=== PATIENT | male | born 1955 | race Caucasian/White ===

== ENCOUNTER → 2016-10-28 | Outpatient (CLI) | payer BC ==
[2016-10-28 09:40] LABS: Basophils # (A) 0.1 k/uL (0-0.2); Basophils % (A) 1 %; CH 33.1; CHCM 35.1; Eosinophils # (A) 0.1 k/uL (0-0.7); Eosinophils % (A) 3 %; HCT 44.8 % (39.0-53.0); HGB 15.3 gm/dL (13.0-17.5); Luc # (Auto) 0.17; Luc % (Auto) 4; Lymphocytes # (A) 1.9 k/uL (1.0-4.8); Lymphocytes % (A) 40 %; MCH 32.3 pg (25.0-35.0); MCHC 34.2 g/dL (31.0-37.0); MCV 94.6 fL (80.0-100.0); Mean Platelet Volume 6.4; Monocytes # (A) 0.4 k/uL (0-1.0); Monocytes % (A) 8 %; Neutrophils # (A) 2.2 k/uL (1.3-7.7); Neutrophils % (A) 45 %; RBC 4.74 m/uL (4.30-5.90); RDW 12.7 % (11.5-15.5); WBC 4.8 k/uL (3.8-10.6)
[2016-10-28 11:21] LABS: ALT 29 U/L (21-72); AST 23 U/L (17-59); Alkaline Phosphatase 38 U/L (38-126); Anion Gap 12 mmol/L; Blood Urea Nitrogen 10 mg/dL (9-20); Calcium 9.5 mg/dL (8.4-10.2); Carbon Dioxide 25 mmol/L (22-30); Chloride 103 mmol/L (98-107); Cholesterol 198 mg/dL (<200); Glucose 99 mg/dL (74-99); HDL Cholesterol 47 mg/dL (40-60); Non-African American GFR(MDRD) >60 (>60 ml/min/1.73 sqM); Potassium 4.2 mmol/L (3.5-5.1); Sodium 140 mmol/L (137-145); Total Bilirubin 1.2 mg/dL (0.2-1.3); Total Protein 7.1 g/dL (6.3-8.2); Triglycerides 121 mg/dL (<150)
[2016-10-28 11:47] LABS: Prostate Specific Antigen 0.98 ng/mL (0.00-4.00)
== END | disposition home or self-care (01) ==
LOC: LABWHC1 09:00
PROVIDERS: ATTEND Nurse Practitioner Adult Health
DX: Z00.00 Encounter for general adult medical examination without abnormal findings (principal); I10 Essential (primary) hypertension; Z12.5 Encounter for screening for malignant neoplasm of prostate
CPT/HCPCS: 36415; 80053; 80061; 84153; 84439; 84443; 85025

== ENCOUNTER → 2017-10-06 | Outpatient (CLI) | payer BC ==
[2017-10-06 09:26] LABS: Appearance,Urine Clear (Clear); Bilirubin,Urine Negative (Negative); Blood,Urine Negative (Negative); Color,Urine Light Yellow; Glucose,Urine (UA) Negative (Negative); Ketones,Urine Negative (Negative); Leukocyte Esterase,Urine Negative (Negative); Protein,Urine Negative (Negative); Specific Gravity,Urine 1.004 (1.001-1.035); Urobilinogen,Urine <2.0 mg/dL (<2.0)
[2017-10-06 09:27] LABS: HCT 43.4 % (39.0-53.0); HGB 15.2 gm/dL (13.0-17.5); MCH 31.9 pg (25.0-35.0); MCV 91.1 fL (80.0-100.0); Platelet Count 219 k/uL (150-450); RBC 4.76 m/uL (4.30-5.90); RDW 12.9 % (11.5-15.5); WBC 5.7 k/uL (3.8-10.6)
[2017-10-06 09:56] LABS: Albumin 4.8 g/dL (3.5-5.0); Chloride 101 mmol/L (98-107); Sodium 139 mmol/L (137-145)
[2017-10-06 10:27] LABS: PSA Annual Screen 0.83 ng/mL (0.00-4.00)
[2017-10-06 10:49] LABS: ALT 27 U/L (21-72); AST 27 U/L (17-59); Alkaline Phosphatase 41 U/L (38-126); Anion Gap 13 mmol/L; Blood Urea Nitrogen 12 mg/dL (9-20); Calcium 9.9 mg/dL (8.4-10.2); Carbon Dioxide 25 mmol/L (22-30); Cholesterol 221 mg/dL (<200); Creatine Kinase 77 U/L (55-170); Glucose 93 mg/dL (74-99); HDL Cholesterol 44 mg/dL (40-60); LDL Cholesterol,Calculated 141 mg/dL (0-99); Total Protein 7.6 g/dL (6.3-8.2); Triglycerides 178 mg/dL (<150); Uric Acid 8.4 mg/dL (3.5-8.5)
[2017-10-06 17:33] LABS: Hepatitis A Ab, Total Reactive (Non-Reactive); Hepatitis B Surface AB- Quant 40.4 mIU/mL; Hepatitis C IgG Antibody Non-Reactive (Non-Reactive)
[2017-10-06 20:44] LABS: Hemoglobin A1C 5.3 % (4.0-6.0)
== END | disposition home or self-care (01) ==
LOC: LABWHC1 08:23
PROVIDERS: ATTEND Family Medicine
DX: I10 Essential (primary) hypertension (principal); Z12.5 Encounter for screening for malignant neoplasm of prostate; Z13.9 Encounter for screening, unspecified
CPT/HCPCS: 86803; 80061; 80053; 82550; 84443; 84550; 85027; 86706; 87340; 81003; 86708; 83036; 36415; G0103

== ENCOUNTER → 2017-12-01 | Outpatient (CLI) | payer BC ==
[2017-12-01 11:16] LABS: Anion Gap 12 mmol/L; Blood Urea Nitrogen 19 mg/dL (9-20); Calcium 10.1 mg/dL (8.4-10.2); Carbon Dioxide 28 mmol/L (22-30); Chloride 97 mmol/L (98-107); Glucose 94 mg/dL (74-99); Potassium 3.8 mmol/L (3.5-5.1); Sodium 137 mmol/L (137-145)
[2017-12-01 12:29] LABS: T4, Free (Free Thyroxine) 0.73 ng/dL (0.78-2.19)
== END | disposition home or self-care (01) ==
LOC: LABWHC1 10:21
PROVIDERS: ATTEND Family Medicine
DX: E03.9 Hypothyroidism, unspecified (principal); I10 Essential (primary) hypertension
CPT/HCPCS: 36415; 80048; 84439; 84443

== ENCOUNTER → 2018-03-23 | Outpatient (CLI) | payer BC ==
[2018-03-23 16:13] LABS: T4, Free (Free Thyroxine) 1.13 ng/dL (0.78-2.19)
== END | disposition home or self-care (01) ==
LOC: LABWHC1 14:22
PROVIDERS: ATTEND Family Medicine
DX: E03.9 Hypothyroidism, unspecified (principal)
CPT/HCPCS: 36415; 84439; 84443

== ENCOUNTER → 2018-04-05 | Outpatient (CLI) | payer BC ==
--- NOTE | 2018-04-05 13:07 | ECHOS ---
STRESS ECHOCARDIOGRAM INDICATIONS: Chest pain. MEDICATIONS: Metoprolol, Lipitor, Benicar. BASELINE HEART RATE: 75 BASELINE BLOOD PRESSURE: 117/50 MAXIMUM HEART RATE: 155 MAXIMUM BLOOD PRESSURE: 195/81 85% MPHR: 134 100% MPHR: 158 METS: 10.5 MAXIMUM STAGE REACHED: III TOTAL EXERCISE TIME: 9:01 CLINICAL INFORMATION: Baseline rhythm sinus mechanism, rate 75, normal axis, intervals, normal electrocardiogram, baseline blood pressure 117/50 mmHg. Patient exercised on Ivan status post protocol for 9 minutes 1 second reaching peak rate 155 beats per minute which is equal to 98% maximum predicted heart rate. Peak blood pressure 195/81 mmHg. Test was terminated due to fatigue. There was no chest pain. Electrocardiograph monitoring revealed no evidence of diagnostic ischemic ST deviation. FINDINGS: Baseline echocardiogram revealed normal function at peak exercise. There was normal wall motion augmentation with no hypokinesis or dyskinesis. CONCLUSION: 1. Good exercise tolerance with normal electrocardiograph response to exercise. 2. Normal stress echocardiogram with no evidence of stress-induced ischemia. MMODL / IJN: [id number] /
== END | disposition home or self-care (01) ==
LOC: RADNMMAIN 08:57
PROVIDERS: ATTEND Family Medicine
DX: R07.9 Chest pain, unspecified (principal)
CPT/HCPCS: 93351

== ENCOUNTER → 2018-07-03 | Outpatient (CLI) | payer BC | END | disposition home or self-care (01) | LOC: LABWHC1 13:54 | PROVIDERS: ATTEND Family Medicine | DX: E03.9 Hypothyroidism, unspecified (principal) | CPT/HCPCS: 36415; 84443 ==

== ENCOUNTER → 2018-10-10 | Outpatient (CLI) | payer BC ==
[2018-10-10 11:11] LABS: Appearance,Urine Clear (Clear); Bilirubin,Urine Negative (Negative); Blood,Urine Negative (Negative); Color,Urine Light Yellow; Glucose,Urine (UA) Negative (Negative); Ketones,Urine Negative (Negative); Leukocyte Esterase,Urine Negative (Negative); Nitrite,Urine Negative (Negative); Protein,Urine Negative (Negative); Specific Gravity,Urine 1.003 (1.001-1.035); Urobilinogen,Urine <2.0 mg/dL (<2.0)
[2018-10-10 11:25] LABS: Basophils # (A) 0.1 k/uL (0-0.2); Basophils % (A) 1 %; Eosinophils # (A) 0.2 k/uL (0-0.7); Eosinophils % (A) 3 %; HGB 13.5 gm/dL (13.0-17.5); Lymphocytes # (A) 1.7 k/uL (1.0-4.8); Lymphocytes % (A) 27 %; MCH 32.5 pg (25.0-35.0); MCHC 33.7 g/dL (31.0-37.0); MCV 96.6 fL (80.0-100.0); Mean Platelet Volume 6.2; Monocytes # (A) 0.6 k/uL (0-1.0); Monocytes % (A) 9 %; Neutrophils # (A) 3.6 k/uL (1.3-7.7); Neutrophils % (A) 58 %; Platelet Count 272 k/uL (150-450); RBC 4.14 m/uL (4.30-5.90); RDW 12.9 % (11.5-15.5); WBC 6.3 k/uL (3.8-10.6)
[2018-10-10 17:51] LABS: Albumin 4.6 g/dL (3.80-4.90); Albumin/Globulin Ratio 2.42 (1.60-3.17); Anion Gap 8.1 mmol/L (4.00-12.00); Calcium 9.6 mg/dL (8.7-10.3); Carbon Dioxide 28.9 mmol/L (21.6-31.8); Globulin 1.9 g/dL (1.6-3.3); LDL Cholesterol,Calculated 51.4 mg/dL (0.0-131.0); Potassium 3.8 mmol/L (3.5-5.5); Total Bilirubin 1.2 mg/dL (0.2-1.2); Total Protein 6.5 g/dL (6.2-8.2); VLDL Calculation 23.6 mg/dL (5.00-40.00)
[2018-10-10 19:29] LABS: Hemoglobin A1C 5.2 % (4.0-6.0)
== END | disposition home or self-care (01) ==
LOC: LABWHC1 10:48
PROVIDERS: ATTEND Family Medicine
DX: I10 Essential (primary) hypertension (principal); E78.5 Hyperlipidemia, unspecified; E03.9 Hypothyroidism, unspecified; Z79.899 Other long term (current) drug therapy
CPT/HCPCS: 36415; 80053; 80061; 81003; 82550; 83036; 84443; 85025

== ENCOUNTER 2018-12-10 06:52 | Day surgery (SDC) | payer BC ==
[2018-12-07 08:23] VITALS: BMI 28.7
[~2018-12-10 06:52] MED LIST: LACTATED RINGERS 1,000 ML IV SCH; LIDOCAINE 1% 20 ML VIAL (10MG/ML) FOR IV START INTRADERMA PRN
[2018-12-10] MEDS ORDERED: LACTATED RINGERS 1,000 ML IV ONE (07:07)
[2018-12-10 07:16] VITALS: TEMP 98.3
[2018-12-10] MEDS ORDERED: LIDOCAINE 1% INJ 10MG/ML (20 ML MDV) ONE (07:55)
[2018-12-10] MEDS ORDERED: PROPOFOL 10 MG/ML 20 ML VIAL IV ONE (07:55)
--- NOTE | 2018-12-10 08:23 | P.PCN ---
Date of Procedure: 12/10/18 Procedure(s) Performed: Procedure: Total colonoscopy. Preoperative diagnosis: Screening for neoplasia. Postoperative diagnosis: Diverticulosis with no evidence of acute diverticulitis, strictures, polyps or cancer. Preparation: HalfLytely prep. Sedation: Was provided by anesthesia. Brief clinical history: The patient is a 63-year-old male who is scheduled for this evaluation for screening for neoplasia age being his risk factor. His prior exam was in 2008. The patient has no abdominal complaints, bleeding or anemia. Procedure: With the patient on his left lateral decubitus position and after informed consent and adequate sedation, the perianal area was inspected and it did not show any fissures or fistulas. There were no masses felt on digital rectal examination. The Olympus CFH 190L video colonoscope was then inserted in the rectum in the usual fashion and advanced to the cecum. There were multiple diverticular orifices seen scattered along the length of the bowel wall, more so on the left side, with no evidence of acute diverticulitis or strictures. No polyps or tumors were seen. I retroflexed the endoscope in the rectum before the endoscope was withdrawn. The patient tolerated the procedure well. Plan: The patient was reassured. Discussed dietary measures. He will follow up with you as planned and I recommended repeat exam in 10 years.
[2018-12-10 08:57] VITALS: BP 144/82; PULSE 69; RESP 16
== END 2018-12-10 08:55 | disposition home or self-care (01) ==
LOC: ORWHC2ENDO 06:52
DX: Z12.11 Encounter for screening for malignant neoplasm of colon (principal); K57.30 Diverticulosis of large intestine without perforation or abscess without bleeding; Z88.8 Allergy status to other drugs, medicaments and biological substances; I10 Essential (primary) hypertension; E78.5 Hyperlipidemia, unspecified; Z87.891 Personal history of nicotine dependence; E07.9 Disorder of thyroid, unspecified; Z79.890 Hormone replacement therapy; Z79.899 Other long term (current) drug therapy
CPT/HCPCS: J2001; J2704; G0121; 45378

== ENCOUNTER → 2021-04-28 | Outpatient (CLI) | payer MEDICARE ==
--- NOTE | 2021-04-28 09:42 | CTL ---
EXAMINATION TYPE: CT Low Dose Lung DATE OF EXAM ORDERED: 04/28/2021 HISTORY: Long-term tobacco use. Lung cancer screening CT DLP: [address] CTDI: 2.22 mGy Automated exposure control for dose reduction was used. SCREENING VISIT: Baseline COMPARISON: None TECHNIQUE: Low dose computed tomography scan was performed through the chest at 1 mm thick sections a nd reconstructed images in all 3 planes at [address] DIAGNOSTIC QUALITY: Limited, but interpretable FINDINGS: LUNG NODULES: None. LUNGS: COPD: Severity: Mild Fibrosis: Severity: None Lymph nodes: No greater than 1 cm Other findings: None RIGHT PLEURAL SPACE: Effusion: None Calcification: None Thickening: None Pneumothorax: None LEFT PLEURAL SPACE: Effusion: None Calcification: None Thickening: None Pneumothorax: None HEART: Heart Size: Normal Coronary calcification: Moderate to severe three-vessel Pericardial effusion: None OTHER FINDINGS: Upper abdomen: None Bony thorax: None Supraclavicular region: None Other: None IMPRESSION: No suspicious nodules. CT LUNG RAD AND CT CHEST RECOMMENDATION: Lung-Rad 1 Negative: Continue annual screening with LDCT in 12 months. S Modifier (other clinically significant findings): S Fairly severe three-vessel coronary calcification should be correlated with additional cardiac risk f actors.
--- NOTE | 2021-04-28 12:07 | FL ---
EXAMINATION: Upper GI examination DATE: 04/28/2021 CLINICAL INDICATION: 66-year-old male R13.10, dysphagia, intermittent mid chest pain and food stickin g. COMPARISON: None Total Fluoroscopy Time: 1 minute 56 seconds 50 images obtained. FINDINGS: The esophagus has a normal course, caliber, motility and mucosa. There is a small hiatal hernia noted. Valsalva and positional maneuvers could not elicit any gastroesophageal reflux. The stomach shows mild diffuse fold thickening. Otherwise, no discrete filling defect. The duodenum s hows a normal mucosal pattern. IMPRESSION: 1. Small hiatal hernia. Gastroesophageal reflux could not be elicited during the course of the exam. 2. Mild diffuse gastric fold thickening can be seen with gastritis. Clinically correlate. 3. No esophageal stricture, mass, or other specific abnormality seen.
--- NOTE | 2021-04-28 13:31 | US ---
EXAMINATION TYPE: US duplex aorta DATE OF EXAM: 04/28/2021 COMPARISON: NONE CLINICAL HISTORY: 66-year-old male Z13.6 AAA SCREENING. TECHNIQUE: Multiple sonographic images of the abdominal aorta are obtained. FINDINGS: EXAM MEASUREMENTS: Abdominal Aorta: Proximal: 2.5 x 2.5cm Mid: 2.1 x 2.0cm Distal: 1.8 x 1.9cm Right Iliac: 0.8 x 1.1cm Left Iliac: 1.0 x 1.4cm Network Control Supervisor notes: Proximal portion measures in upper limits of normal IMPRESSION: 1. Borderline ectasia proximal abdominal aorta up to 2.5 cm. 2. No evidence for AAA.
== END | disposition home or self-care (01) ==
LOC: RADCTMAIN 08:17
PROVIDERS: ATTEND Family Medicine
DX: Z12.2 Encounter for screening for malignant neoplasm of respiratory organs (principal); Z13.6 Encounter for screening for cardiovascular disorders; I77.810 Thoracic aortic ectasia; R13.10 Dysphagia, unspecified; K44.9 Diaphragmatic hernia without obstruction or gangrene; K21.9 Gastro-esophageal reflux disease without esophagitis; K63.89 Other specified diseases of intestine; F17.210 Nicotine dependence, cigarettes, uncomplicated
CPT/HCPCS: 71271; 74246; 93979

== ENCOUNTER → 2021-09-06 | Outpatient (CLI) | payer MEDICARE ==
[2021-09-06 14:54] LABS: ALT 32 U/L (10-49); AST 34 U/L (14-35); African American GFR (CKD) 105.5 (60.0-200.0); Albumin/Globulin Ratio 2.04 (1.60-3.17); Alkaline Phosphatase 46 U/L (41-126); BUN/Creat Ratio 8.92 Ratio (12.00-20.00); Blood Urea Nitrogen 7.7 mg/dL (9.0-27.0); Calcium 9.8 mg/dL (8.7-10.3); Chloride 97 mmol/L (96-109); Chol/HDL Ratio 1.79 Ratio; Globulin 2.5 g/dL (1.6-3.3); Glucose 92 mg/dL (70-110); LDL Cholesterol,Calculated 48.1 mg/dL (0.0-131.0); Potassium 3.8 mmol/L (3.5-5.5); Sodium 135 mmol/L (135-145); Total Protein 7.5 g/dL (6.2-8.2); VLDL Calculation 11.92 mg/dL (5.00-40.00)
== END | disposition home or self-care (01) ==
LOC: LABWHC1 10:29
PROVIDERS: ATTEND Internal Medicine Interventional Cardiology
DX: E78.2 Mixed hyperlipidemia (principal)
CPT/HCPCS: 36415; 80053; 80061

== ENCOUNTER → 2021-10-07 | Outpatient (CLI) | payer MEDICARE ==
--- NOTE | 2021-10-07 15:19 | XR ---
EXAMINATION TYPE: XR chest 2V DATE OF EXAM: 10/07/2021 COMPARISON: None available HISTORY: Positive Covid 19 TECHNIQUE: Frontal and lateral views of the chest are obtained. FINDINGS: 11 mm elongated density superimposed on the superior aspect of the left hilum likely representing a s ummation of vascular shadows. Clear remainder of the lungs. No sizable pleural effusion or definite pneumothorax. No cardiomegaly. Minimal aortic atherosclerotic calcifications. No gross aggressive bone lesion. IMPRESSION: No acute pulmonary abnormality.
== END | disposition home or self-care (01) ==
LOC: RADXRMAIN 14:43
PROVIDERS: ATTEND Nurse Practitioner Family
DX: U07.1 COVID-19 (principal)
CPT/HCPCS: 71046

== ENCOUNTER → 2022-02-21 | Outpatient (CLI) | payer MEDICARE ==
[2022-02-21 14:22] LABS: Basophils % (A) 1.4 %; Eosinophils # (A) 0.15 X 10*3/uL (0.04-0.35); Eosinophils % (A) 2.1 %; HCT 42.6 % (39.6-50.0); HGB 14.3 g/dL (13.0-17.0); Immature Grans, Automated 0.4 %; Lymphocytes # (A) 1.81 X 10*3/uL (0.90-5.00); Lymphocytes % (A) 25.6 %; MCH 31.8 pg (27.0-32.0); MCHC 33.6 g/dL (32.0-37.0); MCV 94.9 fL (80.0-97.0); Mean Platelet Volume 9.3 fL (9.5-12.2); Monocytes # (A) 0.97 X 10*3/uL (0.20-1.00); Monocytes % (A) 13.7 %; NRBC Per 100 WBC 0 /100 WBCS (0.0-0.0); Neutrophils % (A) 56.8 %; Platelet Count 264 X 10*3/uL (140-440); RBC 4.49 X 10*6/uL (4.40-5.60); RDW 12.9 % (11.5-14.5); WBC 7.06 X 10*3/uL (4.50-10.00)
[2022-02-21 14:36] LABS: ALT 25 U/L (10-49); AST 44 U/L (14-35); African American GFR (CKD) 107.7 (60.0-200.0); Albumin 5.1 g/dL (3.8-4.9); Albumin/Globulin Ratio 2.12 (1.60-3.17); Alkaline Phosphatase 51 U/L (41-126); BUN/Creat Ratio 10.51 Ratio (12.00-20.00); Blood Urea Nitrogen 8.4 mg/dL (9.0-27.0); Calcium 10.1 mg/dL (8.7-10.3); Carbon Dioxide 25.6 mmol/L (20.0-27.5); Chloride 91 mmol/L (96-109); Chol/HDL Ratio 1.91 Ratio; Globulin 2.4 g/dL (1.6-3.3); Glucose 83 mg/dL (70-110); LDL Cholesterol,Calculated 58.9 mg/dL (0.0-131.0); Non-African American GFR(CKD) 92.9 (60.0-200.0); Potassium 4.2 mmol/L (3.5-5.5); Sodium 131 mmol/L (135-145); Total Protein 7.5 g/dL (6.2-8.2); VLDL Calculation 10.46 mg/dL (5.00-40.00)
[2022-02-21 16:46] LABS: Magnesium 1.9 mg/dL (1.5-2.4)
== END | disposition home or self-care (01) ==
LOC: LABWHC1 08:39
PROVIDERS: ATTEND Internal Medicine Geriatric Medicine
DX: I25.10 Atherosclerotic heart disease of native coronary artery without angina pectoris (principal); R73.9 Hyperglycemia, unspecified; N40.0 Benign prostatic hyperplasia without lower urinary tract symptoms; E03.9 Hypothyroidism, unspecified
CPT/HCPCS: 36415; 80053; 80061; 83735; 84153; 84439; 84443; 85025

== ENCOUNTER → 2022-05-17 | Outpatient (CLI) | payer MEDICARE ==
--- NOTE | 2022-05-17 19:09 | XR ---
EXAMINATION TYPE: XR thoracic spine complete DATE OF EXAM: 05/17/2022 Comparison: 3 views Clinical History: 67-year-old male M54.9 DORSALGIA, UNSPECIFIED Findings: Osteopenia. 12 rib-bearing thoracic vertebral bodies. All pedicles are visualized. Mild degenerative endplate spondylosis lower thoracic thoracic spine. Vertebral body heights are preserved and alignmen t is maintained. Some limitation in visualization of the uppermost thoracic vertebral bodies due to o verlying shoulders. Impression: Mild degenerative disc disease lower thoracic spine. No vertebral compression collapse or malalignmen t.
== END | disposition home or self-care (01) ==
LOC: RADXRMAIN 16:01
PROVIDERS: ATTEND Internal Medicine Geriatric Medicine
DX: M51.34 Other intervertebral disc degeneration, thoracic region (principal)
CPT/HCPCS: 72072

== ENCOUNTER → 2022-05-25 | Outpatient (CLI) | payer MEDICARE ==
--- NOTE | 2022-05-25 09:26 | US ---
EXAMINATION TYPE: US abdomen complete DATE OF EXAM: 05/25/2022 COMPARISON: NONE CLINICAL HISTORY: N20.0 Kidneystone. Back pain x couple weeks TECHNIQUE: Multiple sonographic images of the abdomen are obtained. FINDINGS: EXAM MEASUREMENTS: Liver Length: 16.1 cm Gallbladder Wall: 0.2 cm CBD: 0.5 cm Spleen: 10.5 cm Right Kidney: 9.9 x 5.2 x 4.7 cm Left Kidney: 11.1 x 5.7 x 6.5 cm Pancreas: obscured by overlying midline bowel gas Liver: wnl Gallbladder: wnl Evidence for sonographic Thayer's sign: no CBD: wnl Spleen: wnl Right Kidney: wnl Left Kidney: wnl Upper IVC: wnl Abd Aorta: proximal portion obscured, mid and distal portions wnl The liver is homogenous. The intrahepatic portion of the IVC and proximal abdominal aorta are within normal limits. There is no evidence of cholelithiasis. Common bile duct is unremarkable. The visu alized portions of the pancreas are homogenous. The spleen is unremarkable. Kidneys are symmetric a nd free of hydronephrosis. No shadowing renal calculi. No renal lesions are seen. IMPRESSION: No acute abdominal process.
== END | disposition home or self-care (01) ==
LOC: RADUSWWP 07:32
PROVIDERS: ATTEND Internal Medicine Geriatric Medicine
DX: N20.0 Calculus of kidney (principal)
CPT/HCPCS: 76700

== ENCOUNTER 2022-07-14 08:55 | Emergency (ER) | payer MEDICARE ==
[2022-07-14 09:09] VITALS: RESP 18; TEMP 98.7
[2022-07-14] MEDS ORDERED: hydrALAZINE HCL 20 MG/ML 1 ML VIAL IVP STA ×2 (09:33→13:43)
--- NOTE | 2022-07-14 09:43 | ED ---
General Adult HPI - General Source: patient, RN notes reviewed, old records reviewed Mode of arrival: ambulatory Limitations: no limitations <Sohan Davis - Last Filed: 07/14/22 15:45> <Missael Guerrero - Last Filed: 07/14/22 16:46> - General Chief complaint: Recheck/Abnormal Lab/Rx Stated complaint: hypertension, nausea Time Seen by Provider: 07/14/22 09:13 - History of Present Illness Initial comments: Patient is a 67-year-old male with past medical history remarkable for hypertension, thyroid disorder, hyperlipidemia who presents emergency Department complaining of hypertension. States he first noticed that he was having hypertension issues since Monday. Has been taking his normal prescribed metopro lol 50 mg at night and hydrochlorothiazide 25 mg in the morning. States he has not missed any doses. States that since Monday he has been having mild generalized headaches as well as sinus pressure. He states he typically notices that his blood pressure is elevated when that is the case in the 180 systolic. Denies any other symptoms including blurry vision, weakness, numbness, chest pain, shortness of breath, abdominal pain, nausea, vomiting. States he did have an episode of lightheadedness and low blood pressure on Monday. States he bent forward and then had a light headedness near syncopal episode at that time. Was evaluated by EMS and found to have a blood pressure with systolics in the low 100s. He declined transfer the hospital at that time. Has otherwise felt well. Presents for his hypertension at this time. He states he is very very slight nausea occasionally but currently denies it. (Sohan Davis) - Related Data Home Medications Medication Instructions Recorded Confirmed Atorvastatin [Lipitor] 10 mg PO HS 12/07/18 07/14/22 Levothyroxine Sodium [Synthroid] 50 mcg PO DAILY 12/07/18 07/14/22 Metoprolol Succinate (ER) [Toprol 50 mg PO HS 12/07/18 07/14/22 Xl] Budesonide/Formoterol Fumarate 2 puff INHALATION RT-BID 07/14/22 07/14/22 [Symbicort 160-4.5 Mcg Inhaler] Latanoprost/Pf [Latanoprost 0.005% 1 drop BOTH EYES DAILY 07/14/22 07/14/22 Eye Drop] Olmesartan Medoxomil [Benicar] 40 mg PO DAILY 07/14/22 07/14/22 hydroCHLOROthiazide 25 mg PO DAILY 07/14/22 07/14/22 Allergies Allergy/AdvReac Type Severity Reaction Status Date / Time nebivolol [From [facility]] Allergy Rash/Hives Verified 07/14/22 11:56 Review of Systems ROS Other: All systems not noted in ROS Statement are negative. <Sohan Davis - Last Filed: 07/14/22 15:45> ROS Other: All systems not noted in ROS Statement are negative. <Missael Guerrero - Last Filed: 07/14/22 16:46> ROS Statement: Those systems with pertinent positive or pertinent negative responses have been documented in the HPI. Review of Systems: CONST: Denies fever EYES: Denies blurry vision ENT: Denies nasal congestion C/V: Denies Chest pain RESP: Denies shortness of breath GI: Denies abdominal pain : Denies dysuria SKIN: Denies rash. MSK: Denies joint pain. NEURO: Endorses headache (Sohan Davis) Past Medical History Past Medical History: Hyperlipidemia, Hypertension, Thyroid Disorder History of Any Multi-Drug Resistant Organisms: None Reported Past Surgical History: Orthopedic Surgery Additional Past Surgical History / Comment(s): colonoscopy, elbow surg. Past Anesthesia/Blood Transfusion Reactions: No Reported Reaction Smoking Status: Never smoker Past Alcohol Use History: Occasional Past Drug Use History: None Reported <Sohan Davis - Last Filed: 07/14/22 15:45> General Exam Limitations: no limitations <Sohan Davis - Last Filed: 07/14/22 15:45> - General Exam Comments Initial Comments: General: Appears in no acute distress. HEAD: Normal with no signs of head trauma. EYES: PERRLA, EOMI, conjunctiva normal, no discharge. Pupils are 3 mm and equal bilaterally. ENT: Hearing grossly intact, normal oropharynx. RESPIRATORY: Clear breath sounds bilaterally. No wheezes, rales, or rhonchi. C/V: Regular rate and rhythm. S1 and S2 auscultated, peripheral pulses 2+ and intact throughout ABD: Abd is soft, nontender, nondistended EXT: Normal range of motion, no obvious deformity SKIN: No rashes or lesions observed on exposed skin. NEURO: Alert and oriented x 4. Cranial nerves II-XII intact. No focal sensory or strength deficits. GCS of 15. NIH is 0. He will to ambulate without difficulty. (Sohan Davis) Course <Missael Guerrero - Last Filed: 07/14/22 16:46> Vital Signs 07/14/22 07/14/22 07/14/22 09:03 10:09 11:18 Temperature 98.7 F Pulse Rate 82 79 94 Respiratory 18 18 18 Rate Blood Pressure 208/114 181/100 166/99 O2 Sat by Pulse 96 96 99 Oximetry 07/14/22 07/14/22 14:32 15:52 Temperature Pulse Rate 92 96 Respiratory 18 18 Rate Blood Pressure 168/104 131/84 O2 Sat by Pulse 97 96 Oximetry - Reevaluation(s) Reevaluation #1: 07/14/22 16:45 Chief this patient has a sign out, pending the bed availability at [place]. I did receive a call from the stroke team indicating that there was no bed available, and that the patient would need to be transferred ER to ER. Case discussed with Dr. Boubacar alvarado who will accept transfer to the emergency department. (Missael Guerrero) Medical Decision Making - Lab Data Result diagrams: 07/14/22 10:02 07/14/22 10:02 - EKG Data -: EKG Interpreted by Me <Sohan Davis - Last Filed: 07/14/22 15:45> - Lab Data Result diagrams: 07/14/22 10:02 07/14/22 10:02 <Missael Guerrero - Last Filed: 07/14/22 16:46> - Medical Decision Making Based on the patient's presentation and physical exam, I'm concerned for symptomatic hypertension at this time. He is resting comfortably. The pressure is in the 200s systolic. Is also having a mild headache. This is been ongoing for days. States in appears that the blood pressure is causing the headache as he knows that his elevated prior to having the headache. Also has very mild nausea intermittently which he currently does not have. States he has been compliant with medications. No other acute complaints at this time. Differential includes but is not limited to symptomatic hypertension, intra cranial issue, but tried abnormality. We will obtain basic laboratory studies, screening EKG, CT brain. He'll be given IV hydralazine for his blood pressure. He was in agreement this plan. Vital signs within acceptable limits except for the hypertension. EKG showed no evidence of acute ischemia. Laboratory studies are remarkable for a mild hyponatremia of 127 and hypochloremia of 90. Remainder the blood work was unremarkable. Patient's chest x-ray as interpreted by myself reveals no evidence of acute cardio Poni process. No infiltrate. Patient's CT brain as interpreted by myself reveals no acute intracranial hemorrhage, mass, midline shift. Radiology did read that there was a prominence of the basilar tip of the basilar artery concerning for aneurysm and they recommend a CT angiogram. CT angiogram was therefore obtained and interpreted by myself as showing mild stenosis of bilateral inner internal carotid secondary to Plavix, as well as a small aneurysm at the tip of the basilar artery. Radiology measure the aneurysm is 1.1 cm. They states that there is a left internal carotid artery reduction of 70%, as well as a right internal carotid artery reduction of 60% secondary to [place]. At this time, I did reevaluate the patient. Patient's blood pressure is somewhat improved on 166/99. He states his headache is resolved as well. Is feeling improved overall. I did state that due to his CT findings that would like to contact the neuro interventional is on-call. He was in agreement with this plan. I did speak with Dr. Lott, and there was a delay in receiving a callback. He agreed to evaluate the patient's imaging. After he evaluated the imaging, he did speak with me again and would like the patient transferred to [facility] where he is located. He would like the patient is on a Cardene drip managed blood pressures, goal systolics less than 140. He may do an evaluatory angiogram further evaluate the aneurysm. I spoke to patient and he was in agreement this plan. I spoke with the neuro crit team, who are arranging an ICU bed for the patient. Patient will be transferred when we are contacted by [facility]. Accepting physician is the patient's neuro contractor general engineering, Dr. lott. Transfer is pending at availability. I did reevaluate the patient and patient's blood pressure is further improved at this time with systolics in the 130s. He was still in agreement with transfer. (Sohan Davis) - Lab Data Lab Results 07/14/22 07/14/22 07/14/22 Range/Units 10:02 10:02 10:02 WBC 8.8 (3.8-10.6) k/uL RBC 4.74 (4.30-5.90) m/uL Hgb 15.4 (13.0-17.5) gm/dL Hct 42.1 (39.0-53.0) % MCV 88.8 (80.0-100.0) fL MCH 32.5 (25.0-35.0) pg MCHC 36.6 (31.0-37.0) g/dL RDW 12.7 (11.5-15.5) % Plt Count 257 (150-450) k/uL MPV 7.4 Neutrophils % 78 % Lymphocytes % 12 % Monocytes % 6 % Eosinophils % 1 % Basophils % 1 % Neutrophils # 6.9 (1.3-7.7) k/uL Lymphocytes # 1.1 (1.0-4.8) k/uL Monocytes # 0.6 (0-1.0) k/uL Eosinophils # 0.1 (0-0.7) k/uL Basophils # 0.1 (0-0.2) k/uL PT 10.6 (9.0-12.0) sec INR 1.0 (<1.2) APTT 27.9 (22.0-30.0) sec Sodium 127 L (137-145) mmol/L Potassium 3.9 (3.5-5.1) mmol/L Chloride 90 L (98-107) mmol/L Carbon Dioxide 27 (22-30) mmol/L Anion Gap 10 mmol/L BUN 8 L (9-20) mg/dL Creatinine 0.67 (0.66-1.25) mg/dL Est GFR (CKD-EPI)AfAm >90 (>60 ml/min/1.73 sqM) Est GFR (CKD-EPI)NonAf >90 (>60 ml/min/1.73 sqM) Glucose 100 H (74-99) mg/dL Calcium 9.4 (8.4-10.2) mg/dL Magnesium 1.7 (1.6-2.3) mg/dL Total Bilirubin 2.2 H (0.2-1.3) mg/dL AST 43 (17-59) U/L ALT 27 (4-49) U/L Alkaline Phosphatase 52 (38-126) U/L Total Protein 7.7 (6.3-8.2) g/dL Albumin 5.0 (3.5-5.0) g/dL - EKG Data EKG Comments: 12-lead Electrocardiogram Interpretation Note EKG was reviewed and interpreted by myself. 12-lead ECG performed at 1002 is interpreted by me as revealing normal sinus rhythm at a rate of 66 beats per minute. [place] is normal. MO interval is 202 ms, QRS durations 85 ms, QTc is 383 ms.. There were no ST or T wave abnormalities to suggest myocardial ischemia or injury. R wave progression across the precordium was satisfactory. By my interpretation this EKG is non-diagnostic for acute ischemia. No prior EKG for comparison. (Sohan Davis) Disposition Time of Disposition: 14:00 - Out of Hospital Transfer - Req. Specs Out of Hospital Transfer - Requested Specifics: Other Emergency Center (Transfer to [facility] for eval by neurocrit care.) <Sohan Davis - Last Filed: 07/14/22 15:45> <Missael Guerrero - Last Filed: 07/14/22 16:46> Clinical Impression: Basilar artery aneurysm, Uncontrolled hypertension Disposition: OTHER INSTITUTION NOT DEFINED Condition: Stable Referrals: Amauri De La Paz MD [Primary Care Provider] - 1-2 days
[2022-07-14 10:21] LABS: Basophils # (A) 0.1 k/uL (0-0.2); Basophils % (A) 1 %; Eosinophils # (A) 0.1 k/uL (0-0.7); Eosinophils % (A) 1 %; HCT 42.1 % (39.0-53.0); HGB 15.4 gm/dL (13.0-17.5); Lymphocytes # (A) 1.1 k/uL (1.0-4.8); Lymphocytes % (A) 12 %; MCH 32.5 pg (25.0-35.0); MCHC 36.6 g/dL (31.0-37.0); MCV 88.8 fL (80.0-100.0); Mean Platelet Volume 7.4; Monocytes # (A) 0.6 k/uL (0-1.0); Monocytes % (A) 6 %; Neutrophils # (A) 6.9 k/uL (1.3-7.7); Neutrophils % (A) 78 %; Platelet Count 257 k/uL (150-450); RBC 4.74 m/uL (4.30-5.90); RDW 12.7 % (11.5-15.5); WBC 8.8 k/uL (3.8-10.6)
[2022-07-14 10:29] LABS: Partial Thromboplastin Time 27.9 sec (22.0-30.0); Prothrombin Time 10.6 sec (9.0-12.0)
--- NOTE | 2022-07-14 10:39 | XR ---
EXAMINATION TYPE: XR chest 2V DATE OF EXAM: 07/14/2022 COMPARISON: 10/07/2021 HISTORY: Shortness of breath TECHNIQUE: Frontal and lateral views of the chest are obtained. FINDINGS: Scattered senescent parenchymal changes noted. Hyperinflation compatible with COPD. No evidence for infiltrate. No evidence for atelectasis. Heart size is stable. Mediastinal structures are stable and grossly unremarkable. No evidence for hilar prominence. Degenerative changes dorsal spine. IMPRESSION: 1. No evidence for acute pulmonary disease.
--- NOTE | 2022-07-14 10:40 | CT ---
EXAMINATION TYPE: CT brain wo con DATE OF EXAM: 07/14/2022 COMPARISON: None HISTORY: headache, htn CT DLP: 1162.4 mGycm Automated exposure control for dose reduction was used. 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 Aneurysm of the basilar tip measuring 8 mm luna pected. Recommend CTA [place]. No midline shift or mass effect. Mild generalized degenerative change. Faint low attenuation in the w jyoti matter nonspecific most typical remote white matter ischemia. No acute hemorrhage or mass effect . Intracranial atherosclerotic changes. Orbits are symmetric. Calvarium is intact. Craniocervical junction maintained. Cerebellar tonsils lyi ng just above the level of the foramen magnum. IMPRESSION: 1.There is marked prominence of the basilar tip measuring 8 mm suspicious for basilar tip artery aneu rysm. Correlation was [place] CTA recommended. 2. No acute hemorrhage or mass effect.
[2022-07-14 10:47] LABS: ALT 27 U/L (4-49); AST 43 U/L (17-59); African American GFR (CKD) >90 (>60 ml/min/1.73 sqM); Alkaline Phosphatase 52 U/L (38-126); Anion Gap 10 mmol/L; Blood Urea Nitrogen 8 mg/dL (9-20); Calcium 9.4 mg/dL (8.4-10.2); Carbon Dioxide 27 mmol/L (22-30); Chloride 90 mmol/L (98-107); Glucose 100 mg/dL (74-99); Magnesium 1.7 mg/dL (1.6-2.3); Non-African American GFR(CKD) >90 (>60 ml/min/1.73 sqM); Potassium 3.9 mmol/L (3.5-5.1); Sodium 127 mmol/L (137-145); Total Bilirubin 2.2 mg/dL (0.2-1.3); Total Protein 7.7 g/dL (6.3-8.2)
[2022-07-14] MEDS ORDERED: SODIUM CHLORIDE 0.9% 1,000 ML IV STA ×2 (11:49→15:46)
--- NOTE | 2022-07-14 11:59 | CT ---
EXAMINATION TYPE: CT angio head neck DATE OF EXAM: 07/14/2022 COMPARISON: None HISTORY: headache, htn CT DLP: 571.4 mGycm CONTRAST: Performed with IV Contrast, patient injected with 65cc mL of Isovue 370. Combination Contrast CTA cervical carotids and [place] CTA cervical carotids with 3-D recons truction Contrast CTA of the cervical carotids was performed 3-D reconstruction imaging obtained at a separate workstation. Right carotid system: Mild plaque is seen of the right common carotid artery. There is moderate plaq ue also noted at the carotid bulb and proximal ICA. Estimated diameter reduction of approximately 60 %. ECA is patent. Right vertebral artery appears unremarkable. Left carotid system: Mild plaque is seen of the left common carotid artery. There is moderate plaque also noted at the carotid bulb and proximal ICA. Estimated diameter reduction of approximately 70%. ECA is patent. Left vertebral artery appears unremarkable. IMPRESSION: 1. Estimated diameter reduction left internal carotid artery of 70%. 2. Estimated diameter reduction right internal carotid artery of approximately 60%. CTA [place] with 3-D reconstruction Contrast CTA of the [place] was performed 3-D reconstruction imaging obtained at a separate workstation. Vertebrobasilar system as well as intracranial portions of the internal carotid arteries and their ma pramod tributaries are patent. 1.1 cm aneurysm at the tip of the basilar artery. No additional aneurysms seen. Please note MRI provides greater sensitivity and specificity. Visualized brain appears grossl y unremarkable. IMPRESSION: 1. 1.1 cm aneurysm at the tip of the basilar artery. No additional aneurysms seen. NASCET criteria was used in interpretation of this exam?
[2022-07-14] MEDS: niCARdipine 20 MG in SODIUM CHLORIDE 0.9% 192 ML IV SCH ×2 (14:39→18:00)
[2022-07-14 18:13] VITALS: BP 124/84; PULSE 81
== END 2022-07-14 18:13 | disposition other institution (70) ==
LOC: EC 08:55
DX: G45.0 Vertebro-basilar artery syndrome (principal); I10 Essential (primary) hypertension; E07.9 Disorder of thyroid, unspecified; E78.5 Hyperlipidemia, unspecified; Z88.8 Allergy status to other drugs, medicaments and biological substances; Z79.890 Hormone replacement therapy; Z79.899 Other long term (current) drug therapy
CPT/HCPCS: 99285; 96365; 96366 ×3; 96375; 96361 ×3; 36415; 93005; 80053; 83735; 85025; 85610; 85730; 71046; 70496; 70450; 70498; J0360; Q9967

== ENCOUNTER 2022-08-01 20:44 | Emergency (ER) | payer MEDICARE ==
[2022-08-01 20:54] VITALS: RESP 18; TEMP 97.9
[2022-08-01] MEDS ORDERED: cloNIDine HCL 0.1 MG TAB PO STA (22:15)
--- NOTE | 2022-08-01 23:01 | ED ---
General Adult HPI - General Chief complaint: Recheck/Abnormal Lab/Rx Stated complaint: Uncontrolled BP Time Seen by Provider: 08/01/22 21:10 Source: patient Mode of arrival: ambulatory Limitations: no limitations - History of Present Illness Initial comments: This is a 67-year-old male with a past medical history including hypertension and recently diagnosed basilar aneurysm presents emergency department for hypertension. The patient did state that over the last one day he started noticed that his blood pressure did increase however he denied any symptoms including any shortness of breath, difficulty in breathing, chest pain, headaches or lightheadedness or blurry vision. The patient stated that his blood pressure did increase to 170 systolic and he did take his blood pressure medications as previously prescribed but he was concerned secondary to the previously diagnosed aneurysm. The patient was diagnosed approximately one week ago and has had his blood pressure under control. The patient denied any recent sick contacts and denied any other issues with his blood pressure. The patient became concerned speaking to the emergency department. The patient was resting in bed comfortably without any acute distress. - Related Data Home Medications Medication Instructions Recorded Confirmed Atorvastatin [Lipitor] 10 mg PO HS 12/07/18 08/01/22 Levothyroxine Sodium [Synthroid] 50 mcg PO [id number] 12/07/18 08/01/22 Latanoprost/Pf [Latanoprost 0.005% 1 drop BOTH EYES DAILY 07/14/22 08/01/22 Eye Drop] Olmesartan Medoxomil [Benicar] 40 mg PO DAILY 07/14/22 08/01/22 Aspirin EC [Ecotrin Low Dose] 81 mg PO DAILY 08/01/22 08/01/22 Levothyroxine Sodium [Synthroid] 100 mcg PO MACKEY 08/01/22 08/01/22 Metoprolol Tartrate [Lopressor] 12.5 mg PO BID 08/01/22 08/01/22 Omeprazole 20 mg PO DAILY 08/01/22 08/01/22 hydroCHLOROthiazide 50 mg PO DAILY 08/01/22 08/01/22 Allergies Allergy/AdvReac Type Severity Reaction Status Date / Time nebivolol [From Bystolic] Allergy Rash/Hives Verified 08/01/22 23:09 lisinopril AdvReac dry cough Verified 08/01/22 23:09 Review of Systems ROS Statement: Those systems with pertinent positive or pertinent negative responses have been documented in the HPI. ROS Other: All systems not noted in ROS Statement are negative. Past Medical History Past Medical History: Hyperlipidemia, Hypertension, Thyroid Disorder History of Any Multi-Drug Resistant Organisms: None Reported Past Surgical History: Orthopedic Surgery Additional Past Surgical History / Comment(s): colonoscopy, elbow surg. Past Anesthesia/Blood Transfusion Reactions: No Reported Reaction Past Psychological History: No Psychological Hx Reported Smoking Status: Never smoker Past Alcohol Use History: Occasional Past Drug Use History: None Reported General Exam Limitations: no limitations General appearance: alert, in no apparent distress Head exam: Present: atraumatic, normocephalic, normal inspection Eye exam: Present: normal appearance, PERRL Pupils: Present: normal accommodation ENT exam: Present: normal exam, normal oropharynx, mucous membranes moist Neck exam: Present: normal inspection, full ROM Respiratory exam: Present: normal lung sounds bilaterally Cardiovascular Exam: Present: regular rate, normal rhythm, normal heart sounds GI/Abdominal exam: Present: soft, normal bowel sounds Extremities exam: Present: normal inspection, full ROM Back exam: Present: normal inspection, full ROM Neurological exam: Present: alert, oriented X3, CN II-XII intact Psychiatric exam: Present: normal affect, normal mood Skin exam: Present: warm, dry Course Vital Signs 08/01/22 08/01/22 08/01/22 20:52 22:17 22:42 Temperature 97.9 F Pulse Rate 88 Respiratory 18 Rate Blood Pressure 189/111 177/105 180/98 O2 Sat by Pulse 98 Oximetry 08/01/22 08/01/22 08/01/22 23:14 23:26 23:33 Temperature Pulse Rate Respiratory Rate Blood Pressure 158/93 140/91 133/87 O2 Sat by Pulse Oximetry 08/01/22 23:51 Temperature Pulse Rate 72 Respiratory Rate Blood Pressure O2 Sat by Pulse 96 Oximetry EKG Findings - EKG Comments: EKG Findings:: An EKG was obtained and was interpreted by myself. Rate was 72, P arrival was 225, QR hoahaoism was 89 and QTC was 33. This EKG showed normal sinus rhythm with a first-degree AV block. There was no ST segment elevations or depressions noted. Medical Decision Making - Medical Decision Making Was pt. sent in by a medical professional or institution? @ -No Did you speak to anyone other than the patient for history? @ -No Did you review nursing and triage notes? @ -Triage nursing notes were obtained and reviewed Were old charts reviewed? @ -Old chart was reviewed from the previous admission Differential Diagnosis? @ -ACS, PE, chronic hypertension EKG interpreted by me (3pts min.)? @ -As above X-rays interpreted by me (1pt min.)? @ -[none] CT interpreted by me (1pt min.)? @ -[none] U/S interpreted by me (1pt. min.)? @ -[none] What testing was considered but not performed? (CT, X-rays, U/S, labs)? Why? @ None What meds were considered but not given? Why? @ -[none] Did you discuss the management of the patient with other professionals? @ -No Did you reconcile home meds? @ -[none] Was smoking cessation discussed for >3mins.? @ -[none] Was critical care preformed (if so, how long)? @ -[none] Were there social determinants of health that impacted care today? How? (Tori elessness, low income, unemployed, alcoholism, drug addiction, transportation, low edu. Level, literacy, decrease access to med. care, shelter, rehab)? @ -None Was there de-escalation of care discussed even if they declined? (Discuss DNR or withdrawal of care, Hospice)? @ -No What co-morbidities impacted this encounter? (DM, HTN, Smoking, COPD, CAD, Cancer, CVA, Hep., AIDS, mental health diagnosis, sleep apnea, morbid obesity)? @ -Chronic hypertension, known basilar aneurysm Was patient admitted / discharged? @ -The patient was seen and evaluated emergency department. Physical exam, the patient was resting in bed without any acute complaints or symptoms. The patient did have some mild hypertension noted on a evaluation. Laboratory workup was not obtained nor was a chest x-ray because the patient had asymmetric hypertension. The patient was however given 1 dose of clonidine of 0.1 mg as the patient had a known aneurysm and his blood pressure was elevated. The patient had multiple re-evaluations throughout his emergency stay his blood pressure did decrease significantly to 130s over 80s. The patient continued to remain a symptomatically and was deemed stable for discharge. The patient was advised to follow-up with his primary care physician in the morning for follow- up and further evaluation of his hypertension. The patient was understanding of this and all discretions were answered reportedly. The patient was discharged home in stable condition. Undiagnosed new problem with uncertain prognosis? @ -[none] Drug Therapy requiring intensive monitoring for toxicity (Heparin, Nitro, I nsulin, Cardizem)? @ -[none] Were any procedures done? @ -[none] Diagnosis/symptom? @ -Asymptomatic hypertension Acute, or Chronic, or Acute on Chronic? @ -Chronic Uncomplicated (without systemic symptoms) or Complicated (systemic symptoms)? @ -Uncomplicated Side effects of treatment? @ -[none] Exacerbation, Progression, or Severe Exacerbation] @ -[no] Poses a threat to life or bodily function? @ -[no] Disposition Clinical Impression: Asymptomatic hypertension Disposition: HOME SELF-CARE Condition: Stable Instructions (If sedation given, give patient instructions): Hypertension (ED) Is patient prescribed a controlled substance at d/c from ED?: No Referrals: Amauri De La Paz MD [Primary Care Provider] - 1-2 days Time of Disposition: 23:30
[2022-08-01 23:33] VITALS: BP 133/87
[2022-08-02 00:02] VITALS: PULSE 72
== END 2022-08-02 00:17 | disposition home or self-care (01) ==
LOC: EC 20:44
DX: I10 Essential (primary) hypertension (principal); E78.5 Hyperlipidemia, unspecified; E07.9 Disorder of thyroid, unspecified; Z79.890 Hormone replacement therapy; Z79.82 Long term (current) use of aspirin; Z79.899 Other long term (current) drug therapy
CPT/HCPCS: 93005; 99283

== ENCOUNTER → 2022-11-22 | Outpatient (CLI) | payer MEDICARE ==
[2022-11-22 16:18] LABS: ALT 25 U/L (10-49); AST 27 U/L (14-35); African American GFR (CKD) 113.1 (60.0-200.0); Albumin 4.9 g/dL (3.8-4.9); Albumin/Globulin Ratio 2.39 (1.60-3.17); Alkaline Phosphatase 49 U/L (41-126); BUN/Creat Ratio 13.91 Ratio (12.00-20.00); Blood Urea Nitrogen 9.9 mg/dL (9.0-27.0); Calcium 10.2 mg/dL (8.7-10.3); Carbon Dioxide 25.9 mmol/L (20.0-27.5); Chloride 93 mmol/L (96-109); Chol/HDL Ratio 1.93 Ratio; Globulin 2.1 g/dL (1.6-3.3); Glucose 96 mg/dL (70-110); LDL Cholesterol,Calculated 44.7 mg/dL (0.0-131.0); Non-African American GFR(CKD) 97.5 (60.0-200.0); Potassium 3.7 mmol/L (3.5-5.5); Sodium 131 mmol/L (135-145)
== END | disposition home or self-care (01) ==
LOC: LABWHC1 10:27
PROVIDERS: ATTEND Internal Medicine Interventional Cardiology
DX: E78.2 Mixed hyperlipidemia (principal)
CPT/HCPCS: 36415; 80053; 80061

== ENCOUNTER → 2023-09-25 | Outpatient (CLI) | payer MEDICARE ==
--- NOTE | 2023-09-27 22:22 | P.PCN ---
Date of Procedure: 09/25/23 Operative Findings: Home sleep study testing Date of service is 09/25/2023 Pertinent history This is a 68 yo male patient, who is having difficulty with blood pressure control. The patient is on several antihypertensive medication. Based on appropriate pressure control, sleep apnea was considered and the patient was referred for a home sleep study to evaluate for sleep apnea. The patient has no major hypersomnia or sleepiness. The patient has some chronic snoring. No witnessed apneas. Comorbid conditions include hyperlipidemia and hypothyroidism Pertinent physical findings The height is 5 feet and 10 inches, weight is 290 pounds with a BMI of 27.3 Technical description This is a type III home sleep study and the [employer] apnea link system was used to complete this home sleep study. Total recording duration was 7 hours and 49 minutes. The study started at 11:16 PM and ended at 7:05 AM. There was a total of 7 hours and 37 minutes of flow evaluation and 7 hours and 38 minutes of oxygen saturation evaluation and this is considered to be a adequate study Results The respiratory analysis showed a total of 12 obstructive apneas and 17 obstructive hypopneas. Based on that, the apnea-hypopnea index was calculated to be at around 3.8. Oxygenation analysis The baseline pulse ox while awake was 98%, average pulse ox was 92% and the lowest pulse ox was 84%. Nevertheless, the patient managed to maintain a saturation above 90% throughout the sleep study without any significant desatu rations Cardiac summary The average heart rate was 55 with a minimum heart rate of 47 and a maximum heart rate of 83 Assessment Primary snoring, no evidence of any sleep breathing disorder. AHI was 3.8. No evidence of nocturnal oxygen desaturation Plan The patient will be reassured 2069 sleep breathing disorder. The blood pressure is independent of any underlying sleep breathing disorder. Follow-up with cardiology regarding blood pressure management. Follow-up with primary care. Maintain good sleep hygiene measures. Maintain regular sleep schedule. Contact back should there be any difficulties with sleep quality.
== END ==
LOC: 3 N SLEEP 13:53
PROVIDERS: ATTEND Internal Medicine Critical Care Medicine
DX: G47.33 Obstructive sleep apnea (adult) (pediatric) (principal); I10 Essential (primary) hypertension; E03.9 Hypothyroidism, unspecified; E78.5 Hyperlipidemia, unspecified; Z88.8 Allergy status to other drugs, medicaments and biological substances; Z79.82 Long term (current) use of aspirin; Z79.899 Other long term (current) drug therapy; Z79.890 Hormone replacement therapy; Z87.891 Personal history of nicotine dependence

== ENCOUNTER → 2023-12-04 | Outpatient (CLI) | payer MEDICARE ==
[2023-12-04 14:25] LABS: Basophils # (A) 0.11 X 10*3/uL (0.00-0.10); Basophils % (A) 1.1 %; HGB 15.7 g/dL (13.0-17.0); Lymphocytes # (A) 3.29 X 10*3/uL (0.90-5.00); Lymphocytes % (A) 33.5 %; MCH 31.1 pg (27.0-32.0); MCHC 34.1 g/dL (32.0-37.0); MCV 91.1 FL (80.0-97.0); Mean Platelet Volume 10.1 FL (9.5-12.2); Monocytes # (A) 1.41 X 10*3/uL (0.20-1.00); Monocytes % (A) 14.3 %; NRBC Per 100 WBC 0 X 10*3/uL (0.00-0.01); Neutrophils # (A) 4.68 X 10*3/uL (1.80-7.70); Neutrophils % (A) 47.7 %; Platelet Count 193 X 10*3/uL (140-440); RBC 5.05 X 10*6/uL (4.40-5.60); RDW 12.8 % (11.5-14.5); WBC 9.83 X 10*3/uL (4.50-10.00)
[2023-12-04 15:22] LABS: Creatine Kinase 84 U/L (35-257); LDL Cholesterol,Calculated 47.9 mg/dL (0.0-131.0); T4, Free (Free Thyroxine) 2.61 ng/dL (0.80-1.80)
[2023-12-04 15:47] LABS: ALT 26 U/L (10-49); AST 30 U/L (14-35); Albumin 4.6 g/dL (3.8-4.9); Albumin/Globulin Ratio 2.19 Ratio (1.60-3.17); Alkaline Phosphatase 45 U/L (41-126); Blood Urea Nitrogen 10.8 mg/dL (9.0-27.0); Calcium 9.8 mg/dL (8.7-10.3); Carbon Dioxide 22.8 mmol/L (21.6-31.8); Chloride 89 mmol/L (96-109); Globulin 2.1 g/dL (1.6-3.3); Glucose 84 mg/dL (70-110); Potassium 3.9 mmol/L (3.5-5.5); Sodium 127 mmol/L (135-145); Total Bilirubin 1.5 mg/dL (0.3-1.2); Total Protein 6.7 g/dL (6.2-8.2)
== END | disposition home or self-care (01) ==
LOC: LABWHC1 08:51
PROVIDERS: ATTEND Internal Medicine Interventional Cardiology
DX: I25.10 Atherosclerotic heart disease of native coronary artery without angina pectoris (principal); E78.2 Mixed hyperlipidemia; E80.4 Gilbert syndrome; E03.9 Hypothyroidism, unspecified; R73.9 Hyperglycemia, unspecified
CPT/HCPCS: 36415; 80053; 80061; 82550; 83036; 84439; 84443; 85025